=== PATIENT | male | born 1980 | race African-American/Black ===

== ENCOUNTER 2017-01-23 10:27 | Inpatient (IN) ==
[2017-01-23] MEDS ORDERED: SODIUM CHLORIDE 0.9% 250 ML IV PRN ×2 (11:43→14:08)
[2017-01-23] MEDS ORDERED: ALBUTEROL 2.5 MG/3 ML NEB RESP TX PRN ×2 (11:44→12:40)
[2017-01-23] MEDS ORDERED: SODIUM CHLORIDE 0.9% 1,000 ML IV SCH (12:00)
--- NOTE | 2017-01-23 12:26 | Hospitalist History & Physical ---
<Chaya Donahue - Last Filed: 01/23/17 12:44> Assessment and Plan (1) Decubitus ulcer of hip, left, unstageable Status: Acute Assessment and plan: Ulcerations noted bilaterally; we will culture and consult surgery to evaluate. (2) Decubitus ulcer of hip, right, unstageable Status: Acute Assessment and plan: Ulcerations noted bilaterally; we will culture and consult surgery to evaluate. (3) Leukocytosis Status: Acute Assessment and plan: WBCs were noted at 16,000. Chest x-ray at [facility] suggest right lower lobe pneumonia. We will start empiric antibiotics, inhaled bronchodilators, and intravenous corticosteroids. We will recheck chest x-ray in a.m. (4) Acidosis Status: Acute Assessment and plan: Repeat ABG reported pH at 7.181. We will continue bicarbonate drip as previously ordered. (5) GIB (gastrointestinal bleeding) Status: Acute Assessment and plan: Stool was heme positive. We have consulted gastroenterology to evaluate and treat. We will start PPIs in the meantime and hold all anticoagulation agents. (6) Anemia Status: Acute Assessment and plan: Hemoglobin and hematocrit noted at 5.6 and 17. Upon review of the patient's medical records, the patient has chronic anemia. In addition, the patient also takes Eliquis for anticoagulation purposes. We will type and screen and transfuse blood products. We will recheck hemoglobin and hematocrit in a.m. Qualifiers: Chronic kidney disease stage: unspecified stage (7) Hypomagnesemia Status: Acute Assessment and plan: Magnesium noted at 1.7; we will correct deficit and recheck in a.m. (8) INR (international normal ratio) abnormal Status: Acute History of Present Illness Chief complaint: Pneumonia/acidosis History of present illness: This is a poor and unfortunate 36-year-old male that presented to [facility] as a transfer from the [facility] in [facility] for further evaluation of pneumonia and acidosis. The patient has a very long and complex medical history significant for: Paraplegia, iron deficiency anemia, gastroesophageal reflux disease, mixed anxiety depressive disorder, chronic urinary tract infections, chronic pain syndrome, tracheostomy placement, nicotine addiction, hypocalcemia, and chronic constipation. Patient has a surgical history significant for multiple surgical debridements for various decubitus ulcerations, colectomy with colostomy placement, and spinal instrumentation with posterior rods and segmental wiring placement. The patient presented to the ED at [facility] in [facility] this morning via EMS for the evaluation of shortness of breath. Per EMS report, the patient had a productive cough with yellow sputum and shortness of breath which started on last night. The patient is homebound and is cared for by his family. They reported to the EMS staff that the patient has had multiple episodes similar in nature in the past. The patient was transported to the [facility] in [facility] for further evaluation. The patient was assessed immediately at the time of arrival. Labs were obtained ; complete blood count reported white blood cell count at 16.2, hemoglobin 5.6, hematocrit 17.7, and platelet count at 513. Comprehensive metabolic panel reported sodium at 150, potassium 5.8, chloride 122, carbon dioxide 18, calcium 6.2, BUN 34, creatinine 2.70, glucose 107, alkaline phosphatase 521, magnesium 1.4, and lactic acid at 0.5. Urinalysis was performed which was essentially negative however was a moderate amount of blood noted. Arterial blood gas was obtained which reported a pH of 7.14, PCO2 27, HC03 at 9, and PO2 of 42. Stools for occult blood were heme positive. Coagulation panel reported PTT at 79.9, PT 23.7, INR 2.8. Chest x-ray was significant for right lower lobe pneumonia. Empiric antibiotics were initiated. One amp of sodium bicarb and D5W with 3 A of bicarbonate infusion was initiated at 125 mL an hour. In addition, inhaled bronchodilators and intravenous corticosteroids were initiated. The hospitalist services was then contacted by Dr. Lillie Dent regarding transfer to [facility] for a higher level of care. After brief discussion with both Dr. Dent and Dr. Owens, the patient was subsequently transferred to [facility] for a higher level of care. The patient will be admitted to the critical care unit for continuation of care. We have requested a gastroenterology and surgical consultation to assist during the clinical encounter. Allergies Allergy/AdvReac Type Severity Reaction Status Date / Time banana Allergy Unknown/Unable Verified 01/23/17 12:44 to obtain ROS unobtainable: due to mental status Exam - Constitutional General appearance: normal weight, mild distress - Head Head exam: Present: normal inspection. Absent: normocephalic, atraumatic - Eye Eye exam: Present: EOMI, conjunctival injection Pupils: Present: DOUGLAS, normal accommodation - ENT ENT exam: Present: normal exam. Absent: normal external ear exam, normal oropharynx - Neck Neck exam: Present: normal inspection. Absent: lymphadenopathy, meningismus, tenderness, thyromegaly - Respiratory Respiratory exam: Present: accessory muscle use, rhonchi - Cardiovascular Cardiovascular exam: Present: regular rate and rhythm. Absent: carotid bruit, diastolic murmur, gallop, JVD, rubs, systolic murmur - GI/Abdominal GI/Abdominal exam: Present: normal bowel sounds, other (Colostomy noted to left upper quadrant) - Extremities Exam Extremities exam: Present: edema (+3 edema to bilateral lower extremities), other (Paraplegia) - Back Exam Back exam: Present: CVA tenderness (L) - Neurological Exam Neurological exam: Present: altered, other (Slow to respond) - Psychiatric Psychiatric exam: Present: normal affect, normal mood - Skin Skin exam: Present: normal color, other (Decubitus ulcerations noted to bilateral hips) Quality Measures - VTE Contraindication to Pharmacological VTE Prophylaxis: Active Bleeding <Britni Owens - Last Filed: 01/23/17 17:17> Assessment and Plan (1) Right lower lobe pneumonia Status: Acute Assessment and plan: The patient has been admitted to the intensive care unit. He does not require intubation at this time. He does appear to have a narrow trachea on chest x- ray and had previous tracheostomy. He is started on Levaquin, Zosyn, vancomycin. Current Visit: Yes (2) History of DVT (deep vein thrombosis) Status: Acute Assessment and plan: History of prior left lower extremity DVT on anticoagulation with Xarelto. Current Visit: Yes (3) Acidosis Status: Acute Current Visit: Yes (4) GIB (gastrointestinal bleeding) Status: Acute Current Visit: Yes Qualifiers: GI bleed type/associated pathology: unspecified peptic ulcer Qualified Code (s): K27.4 - Chronic or unspecified peptic ulcer, site unspecified, with hemorrhage (5) INR (international normal ratio) abnormal Status: Acute Assessment and plan: Fresh frozen plasma ordered Current Visit: Yes (6) History of peptic ulcer disease Status: Acute Current Visit: Yes (7) Acute posthemorrhagic anemia Status: Acute Current Visit: Yes History of Present Illness History of present illness: Mr. Zarco is a 36 year old male transferred here from an outlying hospital in [facility]. Patient is found to have acute blood loss anemia with a hemoglobin of 5.2 as well as a right lower lobe pneumonia on chest x-ray. He is not tachycardic or hypotensive. He is however tachypneic and has congested breath sounds. He is also noted to have multiple sacral wounds. Surgery and wound care consults have been placed as well as GI consult. The case was discussed with Dr. Chavez at the bedside. I have personally seen and examined this patient today. I agree with the above note as prepared by the advanced practice provider. I agree with the assessment and plan. The case was discussed with Chaya Donahue NP. Exam - Constitutional Vitals: Period Temp Pulse Resp BP Sys/Esquivel Pulse Ox Last 24 Hr 97.5 F-98.1 F 83-98 9-21 134-160/72-97 90-99
[2017-01-23 12:31] LABS: ABG Base Excess -15.2 MMOL/L (-2.5-2.5); ABG HCO3 12.4 MMOL/L (20-26); ABG Oxygen Saturation 95.4 % (95-100); ABG PO2 88.1 MM HG (80-95); ABG TCO2 11.8 MMOL/L (23-27)
[2017-01-23 12:33] LABS: ABG PH 7.181 (7.35-7.45)
[2017-01-23] MEDS ORDERED: VANCOMYCIN INJ 1,250 MG in SODIUM CHLORIDE 0.9% 250 ML IV PRN (12:54)
[2017-01-23] MEDS ORDERED: PANTOPRAZOLE 40 MG VIAL IV SCH (13:00)
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
[2017-01-23] MEDS ORDERED: VANCOMYCIN INJ 1,250 MG in SODIUM CHLORIDE 0.9% 250 ML IV ONE (14:00)
[2017-01-23] MEDS: LEVOFLOXACIN INJ 750 MG in PREMIX 1 EACH IV SCH (14:43)
[2017-01-23] MEDS: PIPERACILLIN/TAZOBACTAM 3,375 MG in SODIUM CHLORIDE 0.9% 100 ML IV SCH ×2 (14:44→23:53)
[2017-01-23] MEDS: ALBUTEROL/IPRATROPIUM 3 ML NEB RESP TX SCH ×2 (14:50→19:41)
[2017-01-23] MEDS ORDERED: SKIN HEALING OINT (AQUAPHOR) 50 GM TUBE TOP PRN (15:02)
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
--- NOTE | 2017-01-23 16:03 | Ultrasound Report ---
Left lower extremity venous Doppler. Indication: Swelling and edema. Grayscale, color flow, spectral analysis performed and interpreted. No previous for comparison. There is nonoccluding thrombus seen within the femoral vein and popliteal vein. Normal flow and compression of the common femoral vein and greater saphenous vein. Scanning technologist notified ordering RN at the time of scanning. Impression: Nonocclusive deep venous thrombosis of the left femoral and popliteal veins PROCEDURE INTERPRETED AT [facility] DEPARTMENT OF RADIOLOGY Final Report Signed by: Dr. Lucie Llanos
--- NOTE | 2017-01-23 16:42 | XRay Report ---
Portable chest. Indication: Central line placement. The heart is normal in size. The distal tip of a right IJ line is at the junction of the SVC and right atrium. The pulmonary vasculature is prominent. There is mild atelectasis at the right lung base. Katty rods are present within the back. There are findings concerning for tracheal stenosis, with apparent narrowing suggested. Impression: Satisfactory line placement, without evidence of complication. Venous congestion. Right basilar atelectasis. Suspected tracheal narrowing at the thoracic inlet. Plain films of the soft tissue of the neck recommended. PROCEDURE INTERPRETED AT [facility] DEPARTMENT OF RADIOLOGY Final Report Signed by: Dr. Lucie Llanos
[2017-01-23] MEDS: SODIUM HYPOCHLORITE 0.25% IRRIG 473 ML BOTTLE TOP SCH (17:00)
--- NOTE | 2017-01-23 17:18 | Event Note ---
Procedure note Triple-lumen catheter insertion into the right internal jugular vein. The patient was seen and examined. The site was marked. A timeout was taken. The patient's identity, procedure, consent and location were identified. Maximum barrier precautions were used. The patient was prepped and draped in sterile fashion. Local anesthesia was given with 1% lidocaine plain. The internal jugular vein was accessed and the guide wire placed without difficulty. After using the tissue dilator, the triple lumen catheter was placed over the wire and the wire removed intact. All ports were flushed with normal saline and functioned well. The central line was secured with the enclosed suture. A chest x-ray was ordered to confirm placement. The patient tolerated the procedure well. The nurse will place the appropriate dressing according to the hospital protocols.
[2017-01-23] MEDS ORDERED: SODIUM ACETATE IV SCH (17:30)
[2017-01-23] MEDS ORDERED: DEXTROSE 5% IV SCH (17:30)
[2017-01-23 18:41] LABS: Albumin 2.1 G/DL (3.4-5.0); Bilirubin,Total 0.5 MG/DL (0.2-1.0); Calcium 7.1 MG/DL (8.5-10.1); Osmolality,Calculated 300.3 MOS/KG (273-304); Potassium 5.5 MMOL/L (3.5-5.1); Total Protein 7.1 G/DL (6.4-8.3)
[2017-01-23 21:15] LABS: ABG Base Excess -12.3 MMOL/L (-2.5-2.5); ABG HCO3 14.7 MMOL/L (20-26); ABG Oxygen Saturation 94.1 % (95-100); ABG PCO2 39.6 MM HG (35-48); ABG PO2 81.1 MM HG (80-95); ABG TCO2 14.3 MMOL/L (23-27); Allen Test Positive
[2017-01-23 21:17] LABS: ABG PH 7.194 (7.35-7.45)
[2017-01-23] MEDS: PANTOPRAZOLE 40 MG VIAL IV SCH (21:36)
[2017-01-24] MEDS: ALBUTEROL/IPRATROPIUM 3 ML NEB RESP TX SCH ×4 (00:36→19:48)
[2017-01-24 02:52] LABS: ABG Base Excess -8.4 MMOL/L (-2.5-2.5); ABG HCO3 17.6 MMOL/L (20-26); ABG Oxygen Saturation 96.4 % (95-100); ABG PCO2 40.1 MM HG (35-48); ABG PH 7.263 (7.35-7.45); ABG PO2 86.1 MM HG (80-95); Allen Test Positive
[2017-01-24 04:22] LABS: Basophils % 0.1 % (0.0-0.8); Hematocrit 18.6 VOL% (42.0-52.0); Immature Granulocytes % 0.6 %; Immature Granulocytes Absolute 0.11 #; Lymphocytes # 1.4 10*3/uL (1.4-4.0); Lymphocytes % 8.4 % (21.2-54.2); Mean Corpuscular HGB Conc 33.9 GM/DL (32-36); Mean Corpuscular Hemoglobin 25 PG (27-34); Mean Corpuscular Volume 73.8 FL (87-102); Mean Platelet Volume 10.3 FL (9.6-12.0); Monocytes # 1.1 10*3/uL (0.11-0.8); Monocytes % 6.6 % (1.7-12.7); NRBC # 1.31 10*3/uL; Neutrophils # 14.4 10*3/uL (1.4-7.4); Neutrophils % 84.3 % (38.7-73.9); Platelet Count 432 T/CUMM (130-400); Red Blood Count 2.52 MC/CUMM (3.8-5.5); Red Cell Distribution Width 20.7 % (9.3-17.3); White Blood Count 17.1 T/CUMM (4-12)
[2017-01-24 04:27] LABS: Hemoglobin 6.3 GM/DL (14.0-18.0)
[2017-01-24 04:37] LABS: INR 1.2; PT Patient Result 13.2 SECS
[2017-01-24 05:04] LABS: Albumin 2.1 G/DL (3.4-5.0); Bilirubin,Total 0.8 MG/DL (0.2-1.0); Calcium 6.7 MG/DL (8.5-10.1); Magnesium 1.8 MG/DL (1.8-2.4); Potassium 4.9 MMOL/L (3.5-5.1); Total Protein 6.4 G/DL (6.4-8.3)
[2017-01-24 05:43] LABS: Band Neutrophils 1 % (0-10); Hypochromasia 2+; Lymphocytes 4 % (20-55); Myelocytes 1 %; Nucleated Red Blood Cells 6 (0-5); Segmented Neutrophils 84 % (50-85); Target Cells Few; Total Cells Counted 100
[2017-01-24 05:44] LABS: Anisocytosis 1+; Microcytosis 1+; Polychromasia Slight
[2017-01-24 05:45] LABS: Platelet Estimate Increased
[2017-01-24] MEDS: PIPERACILLIN/TAZOBACTAM 3,375 MG in SODIUM CHLORIDE 0.9% 100 ML IV SCH ×2 (06:50→16:00)
[2017-01-24] MEDS: PANTOPRAZOLE 40 MG VIAL IV SCH ×2 (08:04→20:30)
[2017-01-24] MEDS: SODIUM HYPOCHLORITE 0.25% IRRIG 473 ML BOTTLE TOP SCH (08:08)
--- NOTE | 2017-01-24 08:30 | XRay Report ---
Exam: XR chest 1V portable Indication: Shortness of breath Comparison study: 01/23/2017 Findings: Cardiac silhouette is borderline enlarged, similar to prior. Right-sided central venous catheter is in stable position. Minimal elevation right hemidiaphragm appears similar to prior. Minimal perihilar and basilar interstitial opacities are essentially unchanged. There is no focal consolidation, pneumothorax or pleural effusion identified. Impression: No focal consolidation. Minimal perihilar and basilar interstitial opacities may represent a degree of atelectasis or underlying interstitial edema. Stable position of right-sided central venous catheter. PROCEDURE INTERPRETED AT [facility] DEPARTMENT OF RADIOLOGY Final Report Signed by: Tal Glover
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
[2017-01-24] MEDS ORDERED: PROPOFOL 200 MG/20 ML VIAL IV ONE (09:14)
[2017-01-24] MEDS ORDERED: LIDOCAINE 1% 5 ML VIAL ONE (09:14)
[2017-01-24] MEDS ORDERED: ETOMIDATE 20 MG/10 ML VIAL IV ONE (09:14)
--- NOTE | 2017-01-24 09:22 | Operative Note ---
Date of procedure: 01/24/17 Pre-op diagnosis: Anemia with hematocrit of 18.6 posttransfusion 2 units Post-op diagnosis: other (No gross evidence of bleeding source or evidence of prior ulceration, mild linear gastritis noted as well as some mild duodenitis, there is no evidence of the prior ulcer in the stomach. He will likely need a lower GI evaluation next.) Procedure: PROCEDURE: Esophagogastroduodenoscopy (EGD) with cold biopsy for pathology REFERRING PHYSICIAN: Dr. Britni Owens MD INDICATIONS: Drop in hematocrit to 15% in a patient who is acidotic with a history of DVT on Xarelto. Prior history of ulcers in the past previously evaluated at [facility] approximately 6 months ago, we are starting with upper endoscopy. The prior H&P was reviewed and interrim changes are as noted: No change from GI consultation yesterday ENDOSCOPIST: Chet Chavez MD ENDOSCOPE: Olympus Video 100 System upper endoscope ASA CLASS: 4 EXAM: CV: regular rate and rhythm respiratory: Clear without wheezes abdominal: active bowel sounds MEDICATION: Per nursing anesthesia protocol, see their notes PROCEDURE: After discussion of the potential risks and benefits of upper endoscopy, the informed consent was obtained. The patient was then placed in the left lateral decubitus position where sedation was achieved as noted above. Esophageal intubation was performed without difficulty, and the endoscope was advanced through the esophagus, stomach and duodenum. A slow withdrawal was then performed with retroflexion in the stomach for careful inspection of the incisura angularis, fundus and cardia. The scope was then returned to a neutral position and withdrawn through the esophagus. The patient tolerated the procedure well and without complication. BIOPSIES: Gastric antrum/body PHOTOGRAPHS: Obtained FINDINGS: Hypopharynx and Larynx: Normal Esohagoscopy Upper and middle thirds: Normal Lower third normal Esophogastric junctions: Normal Gastroscopy: Cardia/Fundus: No evidence of hiatal hernia, no retained fluid Body: Mild linear gastritis, no evidence of bleeding, biopsied 1 here to rule out Helicobacter pylori Antrum and pylorus mild to moderate linear gastritis, no evidence of bleeding, biopsies 1 here to rule out Helicobacter pylori Duodenoscopy: Bulb mild duodenitis but no erosions or ulcerations Second and third portions: Normal IMPRESSION: No gross evidence of bleeding source or evidence of prior ulceration, mild linear gastritis noted as well as some mild duodenitis, there is no evidence of the prior ulcer in the stomach. He will likely need a lower GI evaluation next. RECOMMENDATIONS: Follow up for biopsy results in 1-2 weeks by phone [phone] Continue anti-gastroesophageal reflux measures (avoid carbonated and acidic beverages, avoid eating within 2 hours of bedtime, avoid tight fitting clothing , and elevate the front bed posts 6 inches prior to sleeping. We will need to perform colonoscopy in order to look for bleeding source in the lower GI tract given the maroon stool seen yesterday in the drop in the patient' s hematocrit. Continue off Xarelto for the time being. This patient may need a Luis Carlos filter considering his history of DVTs, possibly. Chet Chavez MD COPY TO: Dr. Britni Owens MD Anesthesia: MAC Surgeon / Physician: Chet Chavez Estimated blood loss: minimal Specimens: other (Gastric antrum/body 2 bites) Condition: stable Disposition: post procedure unit (G.I. Suite) Results - Labs CBC & BMP: 01/24/17 03:29 01/24/17 03:29
--- NOTE | 2017-01-24 09:29 | Gastrointestinal Progress Note ---
Assessment and Plan (1) History of peptic ulcer disease Status: Acute Assessment and plan: We will attempt to get old records from [facility] concerning this upper endoscopy with the nature of the bleeding was. This may or may not have anything to do with the patient's current bleeding episode--given this patient was recently on Xarelto and does have his history of peptic ulcer disease we will perform another upper endoscopy to look and see if this is healed. It is not clear if the patient was taking proton pump inhibitors at home prior to his admission to the [facility], but he has been on Xarelto for recent DVT in the certainly could increase his risk for bleeding down to his hematocrit of 17%. We will continue to watch as he is transfused. We will perform upper endoscopy tomorrow with possible colonoscopy to follow if this does not demonstrate a adequate cause for the patient's blood loss. Risks of the above procedure include but are not limited to bleeding, infection, perforation, cardiac and pulmonary compromise. 01/24/17--the patient does not have any evidence of prior peptic ulcer disease, patient does have some mild linear gastritis but this does not appear to be the source of the patient's bleeding--we will need to check the colon after a GoLYTELY prep given this patient's elevated creatinine and other non-GI issues. Hopefully he will be able to tolerate this. We can consider use of an NG tube if not. Current Visit: Yes (2) Acute posthemorrhagic anemia Status: Acute Assessment and plan: Again await transfusion, and agree with holding anticoagulation follow the patient's hematocrit over time. He may need some fresh frozen plasma given his INR of of 2.8--I am not sure we have an adequate reason for the elevation in the INR if the patient has not been on Coumadin but rather Xarelto. We need to give some fresh frozen plasma in the short-term to correct this. Follow this on a daily basis--hopefully the next INR was down closer to 1.5. Upper endoscopy to follow tomorrow morning. 01/24/17--A slight improvement with the patient's transfusion, I believe he is getting another 2 units of packed red blood cells in the near future. Current Visit: Yes (3) Status post colostomy Status: Acute Assessment and plan: This was done due to the patient's swelling of his decubiti ulcers. Also if to help with self cleaning. There may be bleeding at the ostomy site, we will need to look at the entire colon see if there is any evidence of ongoing bleeding. Osvaldo prep written. Risks and benefits of the colonoscopy include the following:, Bleeding, infection, perforation, cardiac and pulmonary compromise. Current Visit: Yes Gastroenterology - PN: Subj Interval history: Patient feels all right, no new complaints, tolerated the blood well but has not had a significant improvement in his hematocrit yet. Exam (Progress Note) - Constitutional Vitals: Period Temp Pulse Resp BP Sys/Esquivel Pulse Ox Last 24 Hr 97 F-98.9 F 77-103 9-30 96-160/55-98 90-100 General appearance: no acute distress - Head Head exam: Present: normocephalic - Eye Eye exam: Present: EOMI - Respiratory Respiratory exam: Present: clear to auscultation bilaterally. Absent: rhonchi, stridor, wheezes - Cardiovascular Cardiovascular exam: Present: regular rate and rhythm - GI/Abdominal GI/Abdominal exam: Present: normal bowel sounds, soft. Absent: guarding, tenderness, rebound - Extremities Exam Extremities exam: Present: edema (On the extremity with DVT) - Neurological Exam Neurological exam: Present: alert, oriented X3, motor sensory deficit ( Paralyzed below the waist) - Psychiatric Psychiatric exam: Present: normal affect, normal mood - Skin Skin exam: Present: warm Results - Labs CBC & BMP: 01/24/17 03:29 01/24/17 03:29
[2017-01-24] MEDS: DEXTROSE 5% NACL 0.45% 1,000 ML IV SCH ×3 (09:30→17:32)
--- NOTE | 2017-01-24 10:04 | Anesthesia Post-Op ---
Anesthesia Post OP - Post Ansesthetic Evaluation Patient seen in post op: Yes Resp: within normal limits CV: within normal limits Mental: within normal limits Temp: within normal limits Eyqb-Hf-Obwdcdbek: within normal limits Nausea and Vomiting: within normal limits Pain: within normal limits
[2017-01-24] MEDS: BISACODYL 5 MG TABLET PO SCH ×2 (13:27→16:46)
--- NOTE | 2017-01-24 15:45 | Physician Query Form ---
CLICK EDIT DOCUMENT TO SELECT QUERY ANSWER --> OK --> SIGN Stefanie Tang RN Clinical Utility Agent W) [phone] (f) [phone] [email or web address]: Make your selection(s) from the choices in EACH section by typing an "x" and enter comments in the comment section. Please use your independent medical judgment in providing your response. This request does not imply that any particular answer is desired or expected. CLINICAL INDICATORS: (Providers should not edit this section) Based on documentation of " History of prior left lower extremity DVT on anticoagulation with Xarelto. Xarelto is being held due to gastrointestinal bleeding and acute blood loss anemia". Based on the above, could you clarify the appropriate diagnosis, if significant , that supports the above abnormalities and additional evaluation, monitoring, and/or treatment rendered: ( ) GI bleeding due to anticoagulant (Xarelto) ( ) GI bleeding not due to anticoagulant (Xarelto) ( ) GI bleeding due to ( ) Other, please specify: ( X ) Clinically unable to determine because the patient is still undergoing a workup for bleeding. His EGD was negative but he has not had a colonoscopy. I cannot say that the bleeding is due to the anticoagulation however the anticoagulation does contribute and make the bleeding worse. COMMENTS: PLEASE ALSO DOCUMENT RESPONSE IN PROGRESS NOTES AND/OR DISCHARGE SUMMARY Use of terms such as suspected, likely, or probable (associated with a specific diagnosis that is being evaluated, monitored, or treated as if it exists) are acceptable and can be restated in the discharge summary if not ruled out. MTDD
--- NOTE | 2017-01-24 15:49 | Physician Query Form ---
CLICK EDIT DOCUMENT TO SELECT QUERY ANSWER --> OK --> SIGN Stefanie Tang RN Clinical Test Preparation Tutor W) [phone] (f) [phone] [email or web address] PROVIDERS: Make your selection(s) from the choices in EACH section by typing an "x" and enter comments in the comment section. Please use your independent medical judgment in providing your response. This request does not imply that any particular answer is desired or expected. CLINICAL INDICATORS: (Providers should not edit this section) Based on documentation of "History of prior left lower extremity DVT on anticoagulation with Xarelto". Ultrasound Doppler report states "Nonocclusive deep venous thrombosis of the left femoral and popliteal veins". Based on the above, could you clarify the appropriate diagnosis, if significant , that supports the above abnormalities and additional evaluation, monitoring, and/or treatment rendered: (X ) Pt. has chronic dvt ( ) Pt. has acute and chronic dvt ( ) Pt. has history of dvt only ( ) Other, please specify: ( ) Clinically unable to determine COMMENTS: PLEASE ALSO DOCUMENT RESPONSE IN PROGRESS NOTES AND/OR DISCHARGE SUMMARY Use of terms such as suspected, likely, or probable (associated with a specific diagnosis that is being evaluated, monitored, or treated as if it exists) are acceptable and can be restated in the discharge summary if not ruled out. MTDD
[2017-01-24] MEDS: COLLAGENASE OINT 30 GM TUBE TOP SCH (16:45)
[2017-01-24] MEDS: HYDROmorphone 2 MG/1 ML VIAL IV PRN ×2 (16:46→20:30)
[2017-01-24 17:10] LABS: Hemoglobin 7.7 GM/DL (14.0-18.0)
[2017-01-24] MEDS ORDERED: POLYETHYLENE GLYCOL 3350/ELECTROLYTES 4,000 ML BOTTLE PO ONE (18:00)
[2017-01-24] MEDS: MORPHINE 2 MG/1 ML SYRINGE IV PRN (18:42)
[2017-01-24] MEDS: VANCOMYCIN INJ 1,250 MG in SODIUM CHLORIDE 0.9% 250 ML IV SCH (20:30)
[2017-01-24] MEDS ORDERED: MAGNESIUM CITRATE 300 ML BOTTLE PO ONE (21:00)
[2017-01-24] MEDS ORDERED: ONDANSETRON 4 MG/2 ML VIAL IV PRN (21:36)
[2017-01-25] MEDS: ALBUTEROL/IPRATROPIUM 3 ML NEB RESP TX SCH ×4 (00:20→20:41)
[2017-01-25] MEDS: DEXTROSE 5% NACL 0.45% 1,000 ML IV SCH ×4 (00:36→19:35)
[2017-01-25] MEDS: PIPERACILLIN/TAZOBACTAM 3,375 MG in SODIUM CHLORIDE 0.9% 100 ML IV SCH ×3 (00:36→16:07)
[2017-01-25] MEDS: BISACODYL 5 MG TABLET PO SCH (00:38)
[2017-01-25] MEDS: MORPHINE 2 MG/1 ML SYRINGE IV PRN ×4 (00:56→19:38)
[2017-01-25] MEDS: SODIUM HYPOCHLORITE 0.25% IRRIG 473 ML BOTTLE TOP SCH ×2 (03:00→14:46)
[2017-01-25] MEDS: HYDROmorphone 2 MG/1 ML VIAL IV PRN ×5 (03:20→22:54)
[2017-01-25 06:39] LABS: Basophils % 0.2 % (0.0-0.8); Eosinophils % 0.2 % (0.00-10.9); Hematocrit 25.9 VOL% (42.0-52.0); Hemoglobin 8.5 GM/DL (14.0-18.0); Immature Granulocytes % 0.9 %; Immature Granulocytes Absolute 0.14 #; Lymphocytes # 3.2 10*3/uL (1.4-4.0); Lymphocytes % 19.4 % (21.2-54.2); Mean Corpuscular HGB Conc 32.8 GM/DL (32-36); Mean Corpuscular Hemoglobin 26 PG (27-34); Mean Corpuscular Volume 78.7 FL (87-102); Mean Platelet Volume 9.9 FL (9.6-12.0); Monocytes % 5.9 % (1.7-12.7); NRBC # 2.62 10*3/uL; Neutrophils % 73.4 % (38.7-73.9); Platelet Count 403 T/CUMM (130-400); Red Blood Count 3.29 MC/CUMM (3.8-5.5); Red Cell Distribution Width 20.5 % (9.3-17.3); White Blood Count 16.3 T/CUMM (4-12)
[2017-01-25 07:14] LABS: Band Neutrophils 1 % (0-10); Hypochromasia 1+; Lymphocytes 15 % (20-55); Microcytosis 1+; Nucleated Red Blood Cells 30 (0-5); Polychromasia Slight; Segmented Neutrophils 79 % (50-85); Total Cells Counted 100
[2017-01-25 07:15] LABS: Platelet Estimate Increased; Target Cells Few
[2017-01-25 07:17] LABS: Magnesium 1.8 MG/DL (1.8-2.4); Osmolality,Calculated 296.1 MOS/KG (273-304); Potassium 3.8 MMOL/L (3.5-5.1)
[2017-01-25] MEDS ORDERED: CALCIUM GLUCONATE 1,000 MG in SODIUM CHLORIDE 0.9% 100 ML IV ONE (08:12)
--- NOTE | 2017-01-25 09:18 | General Surgery Progress Note ---
Assessment and Plan (1) Sacral decubitus ulcer Status: Acute Assessment and plan: Impression multiple scattered ulcerations mixed with scar tissue across the bilateral buttocks hips and sacral areas Plan: We will continue with local wound care. He can follow-up in the wound care center for continued management as an outpatient. He has other more pressing issues currently than his chronic ulcers. Current Visit: Yes Subjective Patient reports: Present: no new complaints Exam - Constitutional Vitals: Period Temp Pulse Resp BP Sys/Esquivel Pulse Ox Last 24 Hr 98 F-99.9 F 75-107 11-24 94-160/61-104 92-100 General appearance: no acute distress - Head Head exam: Present: normocephalic - Neck Neck exam: Present: normal inspection - Respiratory Respiratory exam: Present: clear to auscultation bilaterally - Cardiovascular Cardiovascular exam: Present: RRR - GI/Abdominal GI/Abdominal exam: Present: soft - Back Exam Back exam: Present: other (No change in the chronic appearing ulcerations and scar tissue of the buttock and sacral areas. The small amount of eschar and nonviable tissue present at a couple of areas.) Results - Labs CBC & BMP: 01/25/17 06:17 01/25/17 06:17 Lab Results: I have reviewed the past 24 hour labs Quality Measures - VTE Contraindication to Pharmacological VTE Prophylaxis: Active Bleeding
[2017-01-25] MEDS ORDERED: LIDOCAINE 100 MG/5 ML SYRINGE ONE (10:30)
[2017-01-25] MEDS ORDERED: PROPOFOL 200 MG/20 ML VIAL IV ONE (10:30)
--- NOTE | 2017-01-25 11:16 | Operative Note ---
Date of procedure: 01/25/17 Pre-op diagnosis: Hematocrit dropped to 18% and 6 g/dL, maroon stools Post-op diagnosis: other (No gross evidence of bleeding in the colon. This patient has a colostomy in the descending colon. The colon is otherwise unremarkable in appearance. If the patient has recurrence of maroon stools with obtain a tagged red blood cell scan and consider getting capsule endoscopy to look at the small bowel for potential bleeding lesions.) Procedure: PROCEDURE: Colonoscopy [] REFERRING PHYSICIAN: [Britni Owens MD] INDICATIONS: [Hematocrit 18.6/6.3 g/dL, maroon blood per colostomy with negative EGD for prior history of ulcers noted at [place] 6 months ago. ] [The prior H&P was reviewed and interrim changes are as noted: ][No change from GI consultation 2 days ago] ENDOSCOPIST: Chet Chavez MD ENDOSCOPE: Rocketrip Video 100 System colonoscope COLON PREPARATION: [Golytely 4 liters and dulcolax 15 mg po [id number] x 3] ASA CLASS: [4] EXAM: CV: regular rate and rhythm Respiratory: Clear without wheezes Abdominal: active bowel sounds Rectal: Good tone, no fissures or fistulas MEDICATION: Per nursing anesthesia protocol, see their notes PROCEDURE: After discussion of the potential risks and benefits of colonoscopy, the informed consent was obtained, from patient or health care surrogate. The patient was then placed in the left lateral decubitus position where sedation was achieved as noted above. Rectal examination was followed by insertion of the colonoscope. The colonoscope was passed under direct visualization to the cecum. Advancement was facilitated by insertion/withdrawl techniques, abdominal pressure and patient positioning. Once the cecal pole was reached, slow withdrawal was performed with the findings as noted below. The patient tolerated the procedure well and without complication. QUALITY OF PREP: [Adequate] WITHDRAWL TIME: [ 6 minutes 13 seconds] BIOPSIES: [None obtained] PHOTOGRAPHS: [Obtained] FINDINGS: [The musoca appeared normal but somewhat redundant in the following regions: descending colon, splenic flexure, transverse colon, hepatic flexure, ascending colon and cecum. Position within the cecum was confirmed by ileocecal valve, appendiceal oriface, and the convergence of folds (crows foot) . The rectum and sigmoid were surgically absent-- there was no colitis, polyp, mass or AVM was noted throughout the colon. No diverticulosis noted. Intubation of the TI was achieved x 5 cm with normal appearence,] IMPRESSION: [No gross evidence of bleeding in the colon. This patient has a colostomy in the descending colon. The colon is otherwise unremarkable in appearance. If the patient has recurrence of maroon stools with obtain a tagged red blood cell scan and consider getting capsule endoscopy to look at the small bowel for potential bleeding lesions.] RECOMMENDATIONS: [High fiber diet] [Repeat colonosocopy at age 48 and another 12 years] [MiraLAX once daily] [] Chet Chavez MD COPY TO: [Britni Owens MD] Anesthesia: MAC Surgeon / Physician: Chet Chavez Estimated blood loss: minimal Specimens: none sent Condition: stable Disposition: post procedure unit (G.I. Suite) Results - Labs CBC & BMP: 01/25/17 06:17 01/25/17 06:17
--- NOTE | 2017-01-25 11:20 | Gastrointestinal Progress Note ---
Assessment and Plan (1) History of peptic ulcer disease Status: Acute Assessment and plan: We will attempt to get old records from [facility] concerning this upper endoscopy with the nature of the bleeding was. This may or may not have anything to do with the patient's current bleeding episode--given this patient was recently on Xarelto and does have his history of peptic ulcer disease we will perform another upper endoscopy to look and see if this is healed. It is not clear if the patient was taking proton pump inhibitors at home prior to his admission to the [facility], but he has been on Xarelto for recent DVT in the certainly could increase his risk for bleeding down to his hematocrit of 17%. We will continue to watch as he is transfused. We will perform upper endoscopy tomorrow with possible colonoscopy to follow if this does not demonstrate a adequate cause for the patient's blood loss. Risks of the above procedure include but are not limited to bleeding, infection, perforation, cardiac and pulmonary compromise. 01/24/17--the patient does not have any evidence of prior peptic ulcer disease, patient does have some mild linear gastritis but this does not appear to be the source of the patient's bleeding--we will need to check the colon after a GoLYTELY prep given this patient's elevated creatinine and other non-GI issues. Hopefully he will be able to tolerate this. We can consider use of an NG tube if not. 01/25/17--colonoscopy demonstrated the following: No gross evidence of bleeding in the colon. This patient has a colostomy in the descending colon. The colon is otherwise unremarkable in appearance. If the patient has recurrence of maroon stools with obtain a tagged red blood cell scan and consider getting capsule endoscopy to look at the small bowel for potential bleeding lesions. Current Visit: Yes (2) Acute posthemorrhagic anemia Status: Acute Assessment and plan: Again await transfusion, and agree with holding anticoagulation follow the patient's hematocrit over time. He may need some fresh frozen plasma given his INR of of 2.8--I am not sure we have an adequate reason for the elevation in the INR if the patient has not been on Coumadin but rather Xarelto. We need to give some fresh frozen plasma in the short-term to correct this. Follow this on a daily basis--hopefully the next INR was down closer to 1.5. Upper endoscopy to follow tomorrow morning. 01/24/17--A slight improvement with the patient's transfusion, I believe he is getting another 2 units of packed red blood cells in the near future. 01/25/17--patient to be taken out of the ICU at this point from a GI standpoint. There is no bleeding source. Suggest he be watched for stability and sent home tomorrow if stable, if no other issues keeping him in the hospital. Current Visit: Yes (3) Status post colostomy Status: Acute Assessment and plan: This was done due to the patient's swelling of his decubiti ulcers. Also if to help with self cleaning. There may be bleeding at the ostomy site, we will need to look at the entire colon see if there is any evidence of ongoing bleeding. GoLYTELY prep written. Risks and benefits of the colonoscopy include the following:, Bleeding, infection, perforation, cardiac and pulmonary compromise. 01/25/17--this was essentially a normal post colostomy colon. Current Visit: Yes Gastroenterology - PN: Subj Interval history: Patient had difficulty swallowing the rest of his prep as a result the colonoscopy was more prolonged than normal. We did not find bleeding source unfortunately. The patient can resume eating a renal diet. Exam (Progress Note) - Constitutional Vitals: Period Temp Pulse Resp BP Sys/Esquivel Pulse Ox Last 24 Hr 98 F-99.9 F 75-107 11-24 101-160/61-104 92-100 General appearance: no acute distress - Eye Eye exam: Present: EOMI Pupils: Present: DOUGLAS - Respiratory Respiratory exam: Present: clear to auscultation bilaterally - GI/Abdominal GI/Abdominal exam: Present: soft. Absent: distended, tenderness, rebound - Neurological Exam Neurological exam: Present: alert, oriented X3, altered - Psychiatric Psychiatric exam: Present: normal affect, normal mood - Skin Skin exam: Present: warm Results - Labs CBC & BMP: 01/25/17 06:17 01/25/17 06:17
--- NOTE | 2017-01-25 11:21 | Anesthesia Post-Op ---
Anesthesia Post OP - Post Ansesthetic Evaluation Patient seen in post op: Yes Resp: within normal limits CV: within normal limits Mental: within normal limits Temp: within normal limits Owog-Rw-Ctprizxte: within normal limits Nausea and Vomiting: within normal limits Pain: within normal limits
[2017-01-25] MEDS: LEVOFLOXACIN INJ 750 MG in PREMIX 1 EACH IV SCH (12:44)
[2017-01-25] MEDS: COLLAGENASE OINT 30 GM TUBE TOP SCH (14:46)
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
--- NOTE | 2017-01-25 19:27 | Pathology Report from [facility] ---
[facility] ACCESSION # : [id number] PATIENT NAME : Jr. Vegas Davis ORDERING DR : Chet Chavez MD CLINICAL HX: GI Bleed POST-OP DX: Gastritis SPECIMEN INFO: EMELYN GROSS DESCRIPTION: The specimen is received in formalin labeled with the patients name and consists of three man mucosal tissue fragments together measuring 0.5 x 0.2 cm. Submitted in one cassette. DIAGNOSIS FOR NIRANJAN VEGAS JR.: GASTRIC, BIOPSY: Focal active and mild chronic gastritis. H. pylori not seen on H&E or special stain with appropriate control. COLLECTED DATE: 01/24/2017 [facility] REPORT DATE: 01/25/2017 ELECTRONICALLY SIGNED BY: Heaven Fernandez M.D. 01/25/2017 - 11:32:05 GRIFFIN
[2017-01-25] MEDS: PANTOPRAZOLE 40 MG TABLET PO SCH (19:39)
[2017-01-25] MEDS: VANCOMYCIN INJ 1,250 MG in SODIUM CHLORIDE 0.9% 250 ML IV SCH (22:53)
[2017-01-26] MEDS: ALBUTEROL/IPRATROPIUM 3 ML NEB RESP TX SCH ×4 (00:21→19:49)
[2017-01-26] MEDS: PIPERACILLIN/TAZOBACTAM 3,375 MG in SODIUM CHLORIDE 0.9% 100 ML IV SCH ×3 (01:27→16:59)
[2017-01-26] MEDS: MORPHINE 2 MG/1 ML SYRINGE IV PRN ×6 (01:28→22:17)
[2017-01-26 05:02] LABS: Basophils % 0.2 % (0.0-0.8); Eosinophils # 0.2 10*3/uL (0.0-0.87); Eosinophils % 1.3 % (0.00-10.9); Hematocrit 26.6 VOL% (42.0-52.0); Hemoglobin 8.7 GM/DL (14.0-18.0); Immature Granulocytes Absolute 0.13 #; Lymphocytes # 3.2 10*3/uL (1.4-4.0); Lymphocytes % 23.5 % (21.2-54.2); Mean Corpuscular HGB Conc 32.7 GM/DL (32-36); Mean Corpuscular Hemoglobin 26 PG (27-34); Mean Platelet Volume 9.9 FL (9.6-12.0); Monocytes # 1.3 10*3/uL (0.11-0.8); Monocytes % 9.7 % (1.7-12.7); NRBC # 2.09 10*3/uL; Neutrophils # 8.7 10*3/uL (1.4-7.4); Neutrophils % 64.3 % (38.7-73.9); Platelet Count 379 T/CUMM (130-400); Red Blood Count 3.41 MC/CUMM (3.8-5.5); White Blood Count 13.5 T/CUMM (4-12)
[2017-01-26] MEDS: DEXTROSE 5% NACL 0.45% 1,000 ML IV SCH ×3 (05:23→17:41)
[2017-01-26 05:39] LABS: Magnesium 1.5 MG/DL (1.8-2.4); Osmolality,Calculated 294.3 MOS/KG (273-304); Potassium 3.3 MMOL/L (3.5-5.1)
[2017-01-26 05:55] LABS: Calcium 5.8 MG/DL (8.5-10.1)
[2017-01-26] MEDS: PANTOPRAZOLE 40 MG TABLET PO SCH ×2 (06:01→18:08)
[2017-01-26 06:05] LABS: Anisocytosis 1+; Hypochromasia 1+; Microcytosis 1+; Target Cells Few
[2017-01-26 06:06] LABS: Platelet Estimate Normal; Spherocytes Slight
--- NOTE | 2017-01-26 06:39 | Event Note ---
Reported calcium is low at 5.8. No symptoms patient had a albumin of 2.1 earlier when had a calcium 6.7. Corrected calcium may be not that critical due to hypoalbuminemia. I will recheck albumin level and to be followed by the hospitalist in the morning
[2017-01-26] MEDS: HYDROmorphone 2 MG/1 ML VIAL IV PRN ×4 (06:42→20:28)
[2017-01-26] MEDS: PANTOPRAZOLE 40 MG VIAL IV SCH (07:57)
--- NOTE | 2017-01-26 09:45 | Gastrointestinal Progress Note ---
Assessment and Plan (1) Acute posthemorrhagic anemia Status: Acute Assessment and plan: Again await transfusion, and agree with holding anticoagulation follow the patient's hematocrit over time. He may need some fresh frozen plasma given his INR of of 2.8--I am not sure we have an adequate reason for the elevation in the INR if the patient has not been on Coumadin but rather Xarelto. We need to give some fresh frozen plasma in the short-term to correct this. Follow this on a daily basis--hopefully the next INR was down closer to 1.5. Upper endoscopy to follow tomorrow morning. 01/24/17--A slight improvement with the patient's transfusion, I believe he is getting another 2 units of packed red blood cells in the near future. 01/25/17--patient to be taken out of the ICU at this point from a GI standpoint. There is no bleeding source. Suggest he be watched for stability and sent home tomorrow if stable, if no other issues keeping him in the hospital. 01/26/17--patient's hematocrit is certainly stable and improving. He does have some linear gastritis in combination with his Xarelto this is thought to be a source of most of his microcytic anemia. The colon demonstrated no bleeding source whatsoever. Patient is off his Xarelto and is medical rate is certainly improved from 17% up to its current level 26.6%. He is eating well. We really do not have a great bleeding source for him and he does have a DVT that will likely require some treatment. He had previously been on Xarelto and while he is on Protonix he may be protected to some degree, it also might be reasonable to base a [place] filter and leave him off of Xarelto until his stomach heal somewhat. The other option is to put him back on Xarelto and have him recheck in the office in about a month concerning his blood counts and consider capsule endoscopy if he is having low-grade bleeding versus tagged red blood cell scan if he is actively bleeding. In the short-term I am going to go ahead and put him on some ferrous gluconate 3 times daily to rebuild his iron stores. Patient will remain on pantoprazole 40 mg prior to supper for acid control. His prescriptions were written. I will be signing off at this time. Current Visit: Yes (2) Gastritis and duodenitis Status: Acute Assessment and plan: This was thought to be the source the patient's bleeding and as mentioned above pantoprazole has been written as well as ferrous gluconate 325 mg 3 times daily for 2 months to replete his blood stores. Current Visit: Yes (3) Status post colostomy Status: Acute Assessment and plan: This was done due to the patient's swelling of his decubiti ulcers. Also if to help with self cleaning. There may be bleeding at the ostomy site, we will need to look at the entire colon see if there is any evidence of ongoing bleeding. GoLYTELY prep written. Risks and benefits of the colonoscopy include the following:, Bleeding, infection, perforation, cardiac and pulmonary compromise. 01/25/17--This was essentially a normal post colostomy colon. 01/26/17--As noted above. Current Visit: Yes Gastroenterology - PN: Subj Interval history: Patient was offered a potential discharge today but states that he feels "cold and weak" and that his pharmacy does not stay open past 12 and he is concerned about having to come right back to the hospital if he were to be discharged today. I am going to have him discuss this further with the ship pilot but emphasized to him that from a GI standpoint he is probably reached the maximal benefits of hospitalization. The patient is eating well. Exam (Progress Note) - Constitutional Vitals: Period Temp Pulse Resp BP Sys/Esquivel Pulse Ox Last 24 Hr 98.6 F-99.0 F 74-91 14-24 137-161/74-95 98-100 General appearance: no acute distress - Head Head exam: Present: normocephalic - Eye Eye exam: Present: EOMI - Respiratory Respiratory exam: Present: clear to auscultation bilaterally. Absent: rhonchi, stridor, wheezes - Cardiovascular Cardiovascular exam: Present: regular rate and rhythm - GI/Abdominal GI/Abdominal exam: Present: normal bowel sounds, soft, other (Colostomy basically empty of anything but air, multiple scars noted on abdomen.). Absent : distended, tenderness, rebound - Extremities Exam Extremities exam: Present: edema (In association with prior DVT noted) - Neurological Exam Neurological exam: Present: alert, oriented X3, motor sensory deficit ( Hemiplegia noted below the waist). Absent: altered - Skin Skin exam: Present: warm Results - Labs CBC & BMP: 07/15/17 04:42 01/26/17 04:42
--- NOTE | 2017-01-26 11:02 | Hospitalist Progress Note ---
Assessment and Plan (1) Decubitus ulcer of hip, left, unstageable Status: Acute Assessment and plan: Ulcerations noted bilaterally; we will culture and consult surgery to evaluate. 01/26-Surgery to follow and manage. Current Visit: Yes (2) Decubitus ulcer of hip, right, unstageable Status: Acute Assessment and plan: Ulcerations noted bilaterally; we will culture and consult surgery to evaluate. 01/26-surgery is following and managing. Current Visit: Yes (3) Leukocytosis Status: Acute Assessment and plan: WBCs were noted at 16,000. Chest x-ray at [facility] suggest right lower lobe pneumonia. We will start empiric antibiotics, inhaled bronchodilators, and intravenous corticosteroids. We will recheck chest x-ray in a.m. 01/26-Improvement in white blood cell count noted. White blood cell count noted at 13.5. We will continue empiric antibiotics as previously ordered. Current Visit: Yes (4) Acidosis Status: Resolved Assessment and plan: Repeat ABG reported pH at 7.181. We will continue bicarbonate drip as previously ordered. Current Visit: Yes (5) GIB (gastrointestinal bleeding) Status: Acute Assessment and plan: Stool was heme positive. We have consulted gastroenterology to evaluate and treat. We will start PPIs in the meantime and hold all anticoagulation agents. 01/26-Hemoglobin and hematocrit noted at 8.7 and 26.6. No further episodes of bleeding noted anticoagulation agents remain on hold. Agree with GI recommendation to start ferrous sulfate and Protonix. Current Visit: Yes Qualifiers: GI bleed type/associated pathology: unspecified peptic ulcer Qualified Code (s): K27.4 - Chronic or unspecified peptic ulcer, site unspecified, with hemorrhage (6) Anemia Status: Acute Assessment and plan: Hemoglobin and hematocrit noted at 5.6 and 17. Upon review of the patient's medical records, the patient has chronic anemia. In addition, the patient also takes Eliquis for anticoagulation purposes. We will type and screen and transfuse blood products. We will recheck hemoglobin and hematocrit in a.m. 01/26-hemoglobin and hematocrit stable at 8.7 at 26.6. No reports of any bleeding noted. We agree with GIs recommendation to start ferrous sulfate and Protonix. We appreciate the input and management of Dr. Chavez during the clinical encounter. Current Visit: Yes Qualifiers: Chronic kidney disease stage: unspecified stage (7) Hypomagnesemia Status: Acute Assessment and plan: Magnesium noted at 1.7; we will correct deficit and recheck in a.m. Current Visit: Yes (8) INR (international normal ratio) abnormal Status: Acute Current Visit: Yes Hospitalist: Subjective Interval history: Patient seen and examined; chart reviewed. Transferred from critical care on yesterday. No significant overnight events reported per staff. Exam - Constitutional Vitals: Period Temp Pulse Resp BP Sys/Esquivel Pulse Ox Last 24 Hr 98.6 F-99.0 F 74-91 14-24 137-161/74-95 98-100 General appearance: normal weight, no acute distress - Head Head exam: Present: normal inspection, normocephalic, atraumatic - Eye Eye exam: Present: EOMI, conjunctival injection Pupils: Present: DOUGLAS, normal accommodation - ENT ENT exam: Present: normal exam, normal external ear exam, normal oropharynx - Neck Neck exam: Present: normal inspection. Absent: lymphadenopathy, meningismus, thyromegaly - Respiratory Respiratory exam: Present: rhonchi - Cardiovascular Cardiovascular exam: Present: regular rate and rhythm. Absent: diastolic murmur , systolic murmur - GI/Abdominal GI/Abdominal exam: Present: normal bowel sounds, soft, other (Colostomy noted) - Extremities Exam Extremities exam: Present: normal inspection, normal capillary refill, edema (+ 2 edema noted bilateral lower extremities), other (Paraplegia) - Back Exam Back exam: Present: normal inspection - Neurological Exam Neurological exam: Present: alert, oriented X3 - Psychiatric Psychiatric exam: Present: normal affect, normal mood - Skin Skin exam: Present: normal color, other (Multiple decubitus ulcerations noted to bilateral hips and coccyx.) Results - Labs CBC & BMP: 01/26/17 04:42 01/26/17 04:42 Lab Results: I have reviewed the past 24 hour labs Quality Measures - VTE Contraindication to Pharmacological VTE Prophylaxis: Active Bleeding
[2017-01-26] MEDS ORDERED: MAGNESIUM SULF RIDER 2 GM in PREMIX 1 EACH IV ONE (11:38)
[2017-01-26] MEDS ORDERED: CALCIUM GLUCONATE 1,000 MG in SODIUM CHLORIDE 0.9% 100 ML IV ONE (12:30)
[2017-01-26 14:41] LABS: Apearance,Urine CLEAR (Clear); Bilirubin,Urine Negative (Negative); Blood, Urine Small mg/dL (Negative); Glucose,Urine (UA) Negative (Negative); Ketones,Urine Negative (Negative); Nitrite,Urine Negative (Negative); Protein,Urine 100 MG/DL; RBC,Urine 3 /HPF (0-4); Urine Color Colorless (Yellow); Urine Specific Gravity 1.003 (1.001-1.035); Urine Urobilinogen < 2.0 EU/DL (0.2-1.0); WBC,Urine 6 /HPF (0-6)
[2017-01-26] MEDS: COLLAGENASE OINT 30 GM TUBE TOP SCH (15:12)
[2017-01-26] MEDS: SODIUM HYPOCHLORITE 0.25% IRRIG 473 ML BOTTLE TOP SCH (15:12)
[2017-01-26] MEDS: VANCOMYCIN INJ 1,250 MG in SODIUM CHLORIDE 0.9% 250 ML IV SCH (21:54)
[2017-01-27] MEDS: PIPERACILLIN/TAZOBACTAM 3,375 MG in SODIUM CHLORIDE 0.9% 100 ML IV SCH ×3 (00:14→19:10)
[2017-01-27] MEDS: HYDROmorphone 2 MG/1 ML VIAL IV PRN ×2 (01:19→07:09)
[2017-01-27] MEDS: ALBUTEROL/IPRATROPIUM 3 ML NEB RESP TX SCH ×4 (01:20→19:59)
[2017-01-27] MEDS: MORPHINE 2 MG/1 ML SYRINGE IV PRN ×4 (03:54→23:33)
[2017-01-27] MEDS: DEXTROSE 5% NACL 0.45% 1,000 ML IV SCH ×3 (03:54→17:56)
[2017-01-27 05:01] LABS: Basophils % 0.2 % (0.0-0.8); Eosinophils # 0.5 10*3/uL (0.0-0.87); Eosinophils % 3.7 % (0.00-10.9); Hematocrit 26.2 VOL% (42.0-52.0); Hemoglobin 8.7 GM/DL (14.0-18.0); Immature Granulocytes % 0.7 %; Immature Granulocytes Absolute 0.09 #; Lymphocytes # 2.9 10*3/uL (1.4-4.0); Lymphocytes % 21.9 % (21.2-54.2); Mean Corpuscular HGB Conc 33.2 GM/DL (32-36); Mean Corpuscular Hemoglobin 26 PG (27-34); Mean Corpuscular Volume 77.5 FL (87-102); Mean Platelet Volume 9.7 FL (9.6-12.0); Monocytes # 1.4 10*3/uL (0.11-0.8); Monocytes % 10.5 % (1.7-12.7); NRBC # 0.96 10*3/uL; Neutrophils # 8.2 10*3/uL (1.4-7.4); Platelet Count 364 T/CUMM (130-400); Red Blood Count 3.38 MC/CUMM (3.8-5.5); Red Cell Distribution Width 20.9 % (9.3-17.3); White Blood Count 13.1 T/CUMM (4-12)
[2017-01-27 05:36] LABS: Albumin 1.7 G/DL (3.4-5.0); Bilirubin,Total 0.4 MG/DL (0.2-1.0); Magnesium 1.7 MG/DL (1.8-2.4); Osmolality,Calculated 290.4 MOS/KG (273-304); Phosphorous 3.3 MG/DL (2.5-4.9); Total Protein 5.6 G/DL (6.4-8.3)
[2017-01-27] MEDS: PANTOPRAZOLE 40 MG TABLET PO SCH ×2 (07:06→18:34)
[2017-01-27] MEDS ORDERED: MAGNESIUM SULF RIDER 2 GM in PREMIX 1 EACH IV ONE (09:30)
--- NOTE | 2017-01-27 09:32 | Hospitalist Progress Note ---
Assessment and Plan (1) Decubitus ulcer of hip, left, unstageable Status: Acute Assessment and plan: Ulcerations noted bilaterally; we will culture and consult surgery to evaluate. 01/26-Surgery to follow and manage. Current Visit: Yes (2) Decubitus ulcer of hip, right, unstageable Status: Acute Assessment and plan: Ulcerations noted bilaterally; we will culture and consult surgery to evaluate. 01/26-surgery is following and managing. Current Visit: Yes (3) Leukocytosis Status: Acute Assessment and plan: WBCs were noted at 16,000. Chest x-ray at [facility] suggest right lower lobe pneumonia. We will start empiric antibiotics, inhaled bronchodilators, and intravenous corticosteroids. We will recheck chest x-ray in a.m. 01/26-Improvement in white blood cell count noted. White blood cell count noted at 13.5. We will continue empiric antibiotics as previously ordered. 01/27-WBCs noted at 13.1. We will continue supportive care and empiric antibiotic coverage as previously ordered. Current Visit: Yes (4) Acidosis Status: Resolved Assessment and plan: Repeat ABG reported pH at 7.181. We will continue bicarbonate drip as previously ordered. Current Visit: Yes (5) GIB (gastrointestinal bleeding) Status: Acute Assessment and plan: Stool was heme positive. We have consulted gastroenterology to evaluate and treat. We will start PPIs in the meantime and hold all anticoagulation agents. 01/26-Hemoglobin and hematocrit noted at 8.7 and 26.6. No further episodes of bleeding noted anticoagulation agents remain on hold. Agree with GI recommendation to start ferrous sulfate and Protonix. Current Visit: Yes Qualifiers: GI bleed type/associated pathology: unspecified peptic ulcer Qualified Code (s): K27.4 - Chronic or unspecified peptic ulcer, site unspecified, with hemorrhage (6) Anemia Status: Acute Assessment and plan: Hemoglobin and hematocrit noted at 5.6 and 17. Upon review of the patient's medical records, the patient has chronic anemia. In addition, the patient also takes Eliquis for anticoagulation purposes. We will type and screen and transfuse blood products. We will recheck hemoglobin and hematocrit in a.m. 01/26-hemoglobin and hematocrit stable at 8.7 at 26.6. No reports of any bleeding noted. We agree with GIs recommendation to start ferrous sulfate and Protonix. We appreciate the input and management of Dr. Chavez during the clinical encounter. 01/27-hemoglobin and hematocrit 8.7/26.2. No reports of bleeding noted. Continue ferrous sulfate and Protonix for GI recommendation. Current Visit: Yes Qualifiers: Chronic kidney disease stage: unspecified stage (7) Hypomagnesemia Status: Acute Assessment and plan: Magnesium noted at 1.7; we will correct deficit and recheck in a.m. 01/27-magnesium noted at 1.7; we will correct the deficit and recheck in a.m. Current Visit: Yes (8) INR (international normal ratio) abnormal Status: Acute Current Visit: Yes (9) Chronic pain Status: Acute Assessment and plan: Current pain medication regimen discussed with nursing staff. Staff reports patient requesting medications prior to scheduled time. Upon review of the patient's medical records the patient generally takes an extended release type agent at home however he is unaware of the name. He reports that he takes it every 12 hours this is presumably a extended-release agent. We will start OxyIR 20 mg every 12 hours, discontinue hydromorphone, and continue morphine 4 mg every 4 hours as needed for pain. We will reassess and monitor closely. Current Visit: Yes Hospitalist: Subjective Interval history: Patient seen and examined; chart reviewed. No significant overnight events reported per staff. Exam - Constitutional Vitals: Period Temp Pulse Resp BP Sys/Esquivel Pulse Ox Last 24 Hr 98.6 F-100.0 F 69-90 16-20 136-162/74-83 97-100 General appearance: normal weight, no acute distress - Head Head exam: Present: normal inspection, normocephalic, atraumatic - Eye Eye exam: Present: EOMI, conjunctival injection - ENT ENT exam: Present: normal exam, normal external ear exam, normal oropharynx - Neck Neck exam: Present: normal inspection. Absent: lymphadenopathy, meningismus, thyromegaly - Respiratory Respiratory exam: Present: clear to auscultation bilaterally. Absent: rales, rhonchi, stridor, wheezes - Cardiovascular Cardiovascular exam: Present: regular rate and rhythm. Absent: carotid bruit, diastolic murmur, gallop, JVD, rubs, systolic murmur - GI/Abdominal GI/Abdominal exam: Present: normal bowel sounds, soft - Extremities Exam Extremities exam: Present: other (Paraplegia) - Back Exam Back exam: Present: normal inspection - Neurological Exam Neurological exam: Present: alert, oriented X3, CN II-XII intact - Psychiatric Psychiatric exam: Present: normal affect, normal mood - Skin Skin exam: Present: normal color, warm, other (Multiple decubitus ulcerations noted to the bilateral heels and coccyx.) Results - Labs CBC & BMP: 01/27/17 04:43 01/27/17 04:43 Lab Results: I have reviewed the past 24 hour labs Quality Measures - VTE Contraindication to Pharmacological VTE Prophylaxis: Active Bleeding
[2017-01-27] MEDS: ZINC SULFATE 220 MG CAPSULE PO SCH (09:52)
[2017-01-27] MEDS: ASCORBIC ACID 500 MG TABLET PO SCH ×2 (09:52→20:03)
[2017-01-27] MEDS: VANCOMYCIN INJ 1,250 MG in SODIUM CHLORIDE 0.9% 250 ML IV SCH (09:52)
[2017-01-27] MEDS: SODIUM HYPOCHLORITE 0.25% IRRIG 473 ML BOTTLE TOP SCH (09:52)
[2017-01-27] MEDS: MULTIVITAMIN (BEROCCA) TABLET PO SCH (09:52)
[2017-01-27] MEDS: oxyCODONE ER 20 MG TABLET PO SCH ×2 (09:52→20:03)
[2017-01-27] MEDS: COLLAGENASE OINT 30 GM TUBE TOP SCH (09:53)
[2017-01-27] MEDS ORDERED: CALCIUM GLUCONATE 1,000 MG in SODIUM CHLORIDE 0.9% 100 ML IV ONE (11:00)
[2017-01-27] MEDS: LEVOFLOXACIN INJ 750 MG in PREMIX 1 EACH IV SCH (17:21)
[2017-01-28] MEDS: ALBUTEROL/IPRATROPIUM 3 ML NEB RESP TX SCH ×4 (00:50→20:08)
[2017-01-28] MEDS: PIPERACILLIN/TAZOBACTAM 3,375 MG in SODIUM CHLORIDE 0.9% 100 ML IV SCH ×3 (02:55→19:16)
[2017-01-28] MEDS: DEXTROSE 5% NACL 0.45% 1,000 ML IV SCH ×3 (02:56→19:17)
[2017-01-28] MEDS: MORPHINE 2 MG/1 ML SYRINGE IV PRN ×5 (03:42→20:42)
[2017-01-28 05:55] LABS: Basophils % 0.3 % (0.0-0.8); Eosinophils # 0.8 10*3/uL (0.0-0.87); Eosinophils % 6.1 % (0.00-10.9); Hematocrit 26.8 VOL% (42.0-52.0); Hemoglobin 8.9 GM/DL (14.0-18.0); Immature Granulocytes % 1.2 %; Immature Granulocytes Absolute 0.16 #; Lymphocytes # 2.9 10*3/uL (1.4-4.0); Lymphocytes % 21.4 % (21.2-54.2); Mean Corpuscular HGB Conc 33.2 GM/DL (32-36); Mean Corpuscular Hemoglobin 26 PG (27-34); Mean Corpuscular Volume 77.5 FL (87-102); Mean Platelet Volume 10.1 FL (9.6-12.0); Monocytes # 1.5 10*3/uL (0.11-0.8); Monocytes % 10.6 % (1.7-12.7); NRBC # 0.34 10*3/uL; Neutrophils # 8.3 10*3/uL (1.4-7.4); Neutrophils % 60.4 % (38.7-73.9); Platelet Count 383 T/CUMM (130-400); Red Blood Count 3.46 MC/CUMM (3.8-5.5); Red Cell Distribution Width 21.2 % (9.3-17.3); White Blood Count 13.7 T/CUMM (4-12)
[2017-01-28] MEDS: PANTOPRAZOLE 40 MG TABLET PO SCH ×2 (06:20→19:16)
[2017-01-28 06:24] LABS: Magnesium 1.9 MG/DL (1.8-2.4); Phosphorous 3.1 MG/DL (2.5-4.9)
[2017-01-28 06:26] LABS: Alanine Aminotransferase 12 U/L (16-61); Albumin 1.8 G/DL (3.4-5.0); Alkaline Phosphatase 369 U/L (45-117); Aspartate Amino Transferase 17 U/L (0-37); Bilirubin,Total < 0.39 MG/DL (0.2-1.0); Blood Urea Nitrogen 15 MG/DL (7-18); Calcium 6.5 MG/DL (8.5-10.1); Glucose 66 MG/DL (74-106); Osmolality,Calculated 286.7 MOS/KG (273-304); Potassium 3.5 MMOL/L (3.5-5.1); Sodium 145 MMOL/L (136-145); Total Protein 5.8 G/DL (6.4-8.3)
--- NOTE | 2017-01-28 08:03 | XRay Report ---
History is COPD respiratory distress Comparison 01/24/2017 The heart is mildly enlarged the right central line present There has been interval improvement of prior diffuse bilateral pulmonary opacities. Mild hazy infiltrates versus edema remain in the lung bases. Left base is underpenetrated. Impression: Mild improvement with mild residual bilateral infiltrates versus edema PROCEDURE INTERPRETED AT [facility] DEPARTMENT OF RADIOLOGY Final Report Signed by: Dr. Marlin Llanos
[2017-01-28] MEDS: MULTIVITAMIN (BEROCCA) TABLET PO SCH (09:16)
[2017-01-28] MEDS: ZINC SULFATE 220 MG CAPSULE PO SCH (09:16)
[2017-01-28] MEDS: oxyCODONE ER 20 MG TABLET PO SCH ×2 (09:16→20:42)
[2017-01-28] MEDS: ASCORBIC ACID 500 MG TABLET PO SCH ×2 (09:17→20:43)
[2017-01-28] MEDS: SODIUM HYPOCHLORITE 0.25% IRRIG 473 ML BOTTLE TOP SCH (11:43)
[2017-01-28] MEDS: COLLAGENASE OINT 30 GM TUBE TOP SCH (11:44)
--- NOTE | 2017-01-28 14:09 | Hospitalist Progress Note ---
Assessment and Plan (1) Decubitus ulcer of hip, left, unstageable Status: Acute Assessment and plan: This study infected decubitus ulcer disease on the right side. Microbiology defined from the [facility] system shows a extended spectrum of the drug resistance of gram-negative rods. I did review the antibiotics last Saturday and modified the antibiotics been given accordingly. Patient has been afebrile. However his white count remains elevated at this point and I do believe will benefit from not only good nutritional status wound management but also effective antibiosis to treat his infection. I believe he will need some IV antibiotics at least for the coming 2-3 weeks. Admitted suggestion on the note above. I believe he can be switched to Invanz a gram daily continue quinolone and form of ciprofloxacin 250 mg twice daily tailored to his creatinine clearance to use a probiotic 1 capsule twice a day during the course of antibiotics. This alternative choice of antibiotics should be started in the coming 48 hours at a time of discharge. [facility] over for antibiotics as an out-patient. Current Visit: Yes (2) Decubitus ulcer of hip, right, unstageable Status: Acute Assessment and plan: As above Current Visit: Yes (3) Leukocytosis Status: Acute Assessment and plan: As above Current Visit: Yes (4) GIB (gastrointestinal bleeding) Status: Acute Assessment and plan: Stable hematocrit Current Visit: Yes Qualifiers: GI bleed type/associated pathology: unspecified peptic ulcer Qualified Code (s): K27.4 - Chronic or unspecified peptic ulcer, site unspecified, with hemorrhage (5) Anemia Status: Acute Assessment and plan: This could be chronic loss of iron from these wounds as well as chronic inflammation. I will check ferritin and TIBC. Current Visit: Yes Qualifiers: Chronic kidney disease stage: unspecified stage Hospitalist: Subjective Interval history: Patient has been seen interviewed and examined and chart has been reviewed. Gentleman history of severe pressure ulcers including the sacrococcygeal region. He does have a colostomy for rectal diversion. He is microflora is still concerning in that he does have extended spectrum multidrug-resistant gram -negative rods. He is currently on levofloxacin P penicillin tazobactam and vancomycin. This empiric treatment should continue at least for the next 7-10 days. I am informed that he has been considered for outpatient state of antibiotics and specialty clinic where he has been going for wound care willing to take him in for both wound management and antibiotics. We may need to de- escalate his antibiotics as we approximate the date of discharge. This should be within the coming 48 hours. So far there has been no objective demonstration of staphylococcal organism or enterococci. But these organisms are strongly suspected given the low car of the wounds on the nature of the wounds. He is also has had gram-negative rods being the isolates. Will therefore approximately antibiotic that use of twice a day oral ciprofloxacin, a probiotic and Invanz 1 g every 24 hours. He also has isolated a yeast in the urine in the last day I will put him on fluconazole 100 mg daily for 7 days. Exam - Constitutional Vitals: Period Temp Pulse Resp BP Sys/Esquivel Pulse Ox Last 24 Hr 97.7 F-99.2 F 61-83 16-20 135-148/76-87 96-99 General appearance: no acute distress - Eye Eye exam: Present: EOMI Pupils: Present: DOUGLAS - Respiratory Respiratory exam: Present: clear to auscultation bilaterally - Cardiovascular Cardiovascular exam: Present: regular rate and rhythm - GI/Abdominal GI/Abdominal exam: Present: normal bowel sounds, soft, other (Colostomy in place ) - Extremities Exam Extremities exam: Present: other (Paraplegic) - Neurological Exam Neurological exam: Present: alert, oriented X3, CN II-XII intact - Psychiatric Psychiatric exam: Present: normal affect, normal mood - Skin Skin exam: Present: other (Extensive sacrococcygeal wounds that is extending to the gluteal spaces and intergluteal spaces and perirectal perianal areas. Is also excoriation of the scrotal skin.) Results - Labs CBC & BMP: 01/28/17 05:00 01/28/17 05:00 Lab Results: I have reviewed the past 24 hour labs (Note report of microbiologist from [facility] system) Quality Measures - VTE Contraindication to Pharmacological VTE Prophylaxis: Active Bleeding
[2017-01-28] MEDS: VANCOMYCIN INJ 1,250 MG in SODIUM CHLORIDE 0.9% 250 ML IV SCH (22:42)
[2017-01-29] MEDS: ALBUTEROL/IPRATROPIUM 3 ML NEB RESP TX SCH ×4 (01:13→19:18)
[2017-01-29] MEDS: MORPHINE 2 MG/1 ML SYRINGE IV PRN ×5 (01:17→18:34)
[2017-01-29] MEDS: PIPERACILLIN/TAZOBACTAM 3,375 MG in SODIUM CHLORIDE 0.9% 100 ML IV SCH ×3 (01:17→17:57)
[2017-01-29] MEDS: DEXTROSE 5% NACL 0.45% 1,000 ML IV SCH ×3 (01:29→19:06)
[2017-01-29] MEDS: PANTOPRAZOLE 40 MG TABLET PO SCH ×2 (06:13→20:46)
[2017-01-29] MEDS: ZINC SULFATE 220 MG CAPSULE PO SCH (09:46)
[2017-01-29] MEDS: oxyCODONE ER 20 MG TABLET PO SCH ×2 (09:46→20:46)
[2017-01-29] MEDS: ASCORBIC ACID 500 MG TABLET PO SCH ×2 (09:46→20:46)
[2017-01-29] MEDS: MULTIVITAMIN (BEROCCA) TABLET PO SCH (09:46)
[2017-01-29] MEDS: SODIUM HYPOCHLORITE 0.25% IRRIG 473 ML BOTTLE TOP SCH (09:47)
[2017-01-29] MEDS: COLLAGENASE OINT 30 GM TUBE TOP SCH (09:47)
[2017-01-29] MEDS ORDERED: FLUCONAZOLE INJ 100 MG in IV BAG 1 EACH IV SCH (11:30)
--- NOTE | 2017-01-29 13:17 | Hospitalist Progress Note ---
"Assessment and Plan (1) Decubitus ulcer, stage 3 with infection Status: Acute Assessment and plan: contiune iv antbx iv zosyn and iv vanc for 2 more week, pt is waiting for transfer to [facility] for completion of iv antbx Current Visit: Yes (2) GIB (gastrointestinal bleeding) Status: Acute Assessment and plan: resolved Current Visit: Yes Qualifiers: GI bleed type/associated pathology: unspecified peptic ulcer Qualified Code (s): K27.4 - Chronic or unspecified peptic ulcer, site unspecified, with hemorrhage (3) History of DVT (deep vein thrombosis) Status: Chronic Assessment and plan: tatus: Chronic Assessment and plan: History of prior left lower extremity DVT on anticoagulation with Xarelto. Xarelto is being held due to gastrointestinal bleeding and acute blood loss anemia Current Visit: Yes (3) Acidosis Status: Resolved Current Visit: Yes (4) GIB (gastrointestinal bleeding) Status: Acute Assessment and plan: GI consult reviewed. Case discussed with Dr. Chavez. Endoscopy performed. Upper and lower without evidence of acute bleeding. Anticoagulation held. No further blood loss at this time. Current Visit: Yes Qualifiers: GI bleed type/associated pathology: unspecified peptic ulcer Qualified Code (s): K27.4 - Chronic or unspecified peptic ulcer, site unspecified, with hemorrhage (5) History of peptic ulcer disease Status: Inactive Current Visit: Yes (6) Acute posthemorrhagic anemia, watch H|H Status: Acute Current Visit: Yes Current Visit: Yes (4) Mackenzie albicans infection Status: Acute Assessment and plan: add diflucn 100 mg iv qd for 7 days Current Visit: Yes Hospitalist: Subjective Interval history: clinically stable waiting for transfer to [facility] for prolong iv antbx treatment Exam - Constitutional Vitals: Period Temp Pulse Resp BP Sys/Esquivel Pulse Ox Last 24 Hr 98.2 F-99.5 F 66-92 16-20 127-142/67-80 96-100 heent, pearle neck, supple. chest clear. cvs, s1 s2. abd, soft, bs+ exam of lower extremity, stage 3 decubittii ulcers on both hips and lower back look clean Results - Labs CBC & BMP: 01/28/17 05:00 01/28/17 05:00 Quality Measures - VTE Contraindication to Pharmacological VTE Prophylaxis: Active Bleeding"
--- NOTE | 2017-01-29 15:28 | Discharge Summary ---
Hospital Course - Hospital Course Hospital Course: 36-year-old male that presented to [facility] as a transfer from the [facility] in [facility] for further evaluation of pneumonia and acidosis. The patient has a very long and complex medical history significant for: Paraplegia, iron deficiency anemia, gastroesophageal reflux disease, mixed anxiety depressive disorder, chronic urinary tract infections, chronic pain syndrome, tracheostomy placement, nicotine addiction, hypocalcemia, and chronic constipation. Patient has a surgical history significant for multiple surgical debridements for various decubitus ulcerations, colectomy with colostomy placement, and spinal instrumentation with posterior rods and segmental wiring placement. The patient presented to the ED at [facility] in [facility] this morning via EMS for the evaluation of shortness of breath. Per EMS report, the patient had a productive cough with yellow sputum and shortness of breath which started on last night. The patient is homebound and is cared for by his family. They reported to the EMS staff that the patient has had multiple episodes similar in nature in the past. The patient was transported to the [facility] in [facility] for further evaluation. The patient was assessed immediately at the time of arrival. Labs were obtained ; complete blood count reported white blood cell count at 16.2, hemoglobin 5.6, hematocrit 17.7, and platelet count at 513. Comprehensive metabolic panel reported sodium at 150, potassium 5.8, chloride 122, carbon dioxide 18, calcium 6.2, BUN 34, creatinine 2.70, glucose 107, alkaline phosphatase 521, magnesium 1.4, and lactic acid at 0.5. Urinalysis was performed which was essentially negative however was a moderate amount of blood noted. Arterial blood gas was obtained which reported a pH of 7.14, PCO2 27, HC03 at 9, and PO2 of 42. Stools for occult blood were heme positive. Coagulation panel reported PTT at 79.9, PT 23.7, INR 2.8. Chest x-ray was significant for right lower lobe pneumonia. Empiric antibiotics were initiated. One amp of sodium bicarb and D5W with 3 A of bicarbonate infusion was initiated at 125 mL an hour. In addition, inhaled bronchodilators and intravenous corticosteroids were initiated. The hospitalist services was then contacted by Dr. Lillie Dent regarding transfer to [facility] for a higher level of care. After brief discussion with both Dr. Dent and Dr. Owens, the patient was subsequently transferred to [facility] for a higher level of care. The patient will be admitted to the critical care unit for continuation of care. , pt was treated with IV antbx for pneumonia, also started on multiple iv antbx for infecte=cted hip and scal decubitti, on iv zosyn and iv vanc also on iv diflucan i is felt that pt need atleast 2 week of additional iv antbx , his pneumonia is resolved, [facility] , pt History of prior left lower extremity DVT on anticoagulation with Xarelto. Xarelto is being held by GI due to gastrointestinal bleeding and acute blood loss anemia, will recommend to reconsult GI in 1 week about resumption of xaralto Diagnosis - Discharge Diagnosis (1) Decubitus ulcer, stage 3 with infection Status: Acute (2) GIB (gastrointestinal bleeding) Status: Acute (3) History of DVT (deep vein thrombosis) Status: Chronic (4) Mackenzie albicans infection Status: Acute (5) Decubitus ulcer of hip, left, unstageable Status: Acute (6) Decubitus ulcer of hip, right, unstageable Status: Acute Discharge Plan - Discharge Data Disposition: Disch/Xfer-[facility] Term Hos Condition at Discharge: Stable Discharge Diet: low fat, low cholesterol - Discharge Medications New Albuterol Neb [Proventil Neb] 2.5 mg RESP TX RT Q6H PRN PRN Reason: Shortness Of Breath/Wheezing Albuterol/Ipratropium Neb [Duoneb] 3 ml RESP TX RT Q6H Collagenase Oint [Santyl Oint] 1 applic TOP DAILY applic Fluconazole Inj [Diflucan Inj] 100 mg IV Q24H Morphine Inj 2 mg IV Q4H PRN syringe PRN Reason: Pain Severe (8-10) Ondansetron Inj [Zofran Inj] 4 mg IV Q4H PRN vial PRN Reason: Nausea/Vomiting oxyCODONE ER [OxyCONTIN] 20 mg PO Q12HR tablet Pantoprazole Tab [Protonix Tab] 40 mg PO BID@0700,1900 tablet Skin Healing Oint (Aquaphor) [Aquaphor] 1 applic TOP PRN PRN applic PRN Reason: Dry Skin Sodium Hypochlorite 0.25% Irr [Dakins 1/2 Strength 0.25% Soln] 1 applic TOP DAILY applic Vancomycin Inj 1,250 mg IV Q36H vial Zinc Sulfate 220 mg PO DAILY capsule Ascorbic Acid Tab [Vitamin C Tab] 500 mg PO BID tablet Multivitamin (Berocca) [Berocca] 1 tablet PO DAILY tablet Piperacillin/Tazobactam [Zosyn] 3,375 mg IV Q8H vial - Follow Up or Referral - Forms/Instructions Exam - Constitutional Vitals: Period Temp Pulse Resp BP Sys/Esquivel Pulse Ox Last 24 Hr 98.2 F-99.5 F 66-92 16-20 127-164/67-88 96-100 heent, pearle neck, supple. chest clear. cvs, s1 s2. 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, alert orientedx3 Discharge Results Procedures and tests throughout hospitalization: Pending Orders 01/26/17 12:01 Blood Culture Stat 01/28/17 05:00 Transferrin Stat 01/30/17 04:00 BMP [Basic Metabolic Panel] IN AM Comp Blood Count Auto Diff IN AM Labs on day of discharge: Labs from last 24 hours 01/29/17 10:00 Vancomycin Trough 31.8 H Preliminary micro results at discharge 01/26/17 12:01 Blood Culture - Preliminary Blood No growth at 3 days 01/26/17 12:01 Blood Culture - Preliminary Blood No growth at 3 days DS: Provider Date of admission: 01/25/17 20:40 Primary care physician: Saeed Oneal MD Attending physician on admission: Britni Owens MD Consults: 01/23/17 14:00 Consult to Anesthesiology [CONS] Routine Consulting Provider: Reason for Anesthesiology: Pre-op Clearance Consult to Physician [CONS] Routine Comment: Consulting Provider: Ernesto Mcpherson Consult to Specialist Group: Surgery When should Consulting Provider be notified: Now Person Notified: Grace Date Notified: 01/23/17 Time Notified: 14:04 Consult Notification Comment: Sacral wound eval 01/23/17 14:45 Consult to Pharmacy [CONS] Routine Reason for Pharmacy Consult: Dose/Manage Vancomycin 01/23/17 14:47 Consult to Physician [CONS] Routine Comment: sacral wound Consulting Provider: Ernesto Mcpherson When should Consulting Provider be notified: Now Person Notified: raheem calzada Date Notified: 01/23/17 Time Notified: 13:35 01/26/17 13:41 Consult to Case Mgmt/Social Srvs [CONS] Routine Reason for Case Mgmt/Social Srvs: Other Consult Comment: lives at home large wounds Discharging clinician: Lance Harman MD
[2017-01-29 21:58] VITALS: BP 136/73
--- NOTE | 2017-02-01 13:21 | Physician Query Form ---
CLICK EDIT DOCUMENT TO SELECT QUERY ANSWER --> OK --> SIGN Stefanie Tang RN Clinical Outreach Specialist W) [phone] (f) [phone] [email or web address] PROVIDERS: Make your selection(s) from the choices in EACH section by typing an "x" and enter comments in the comment section. Please use your independent medical judgment in providing your response. This request does not imply that any particular answer is desired or expected. CLINICAL INDICATORS: (Providers should not edit this section) Based on documentation of "acute Mackenzie albicans infection". Urine culture showed Mackenzie tropicalis. Pt. treated with IV antibiotics and IV Diflucan. Based on the above, could you clarify the appropriate diagnosis, if significant , that supports the above abnormalities and additional evaluation, monitoring, and/or treatment rendered: (x) Pt. treated for UTI ( ) Pt. not treated for UTI ( ) Other, please specify: ( ) Clinically unable to determine COMMENTS: PLEASE ALSO DOCUMENT RESPONSE IN PROGRESS NOTES AND/OR DISCHARGE SUMMARY Use of terms such as suspected, likely, or probable (associated with a specific diagnosis that is being evaluated, monitored, or treated as if it exists) are acceptable and can be restated in the discharge summary if not ruled out. [facility]
== END 2017-01-29 22:09 | DRG 193 ==
LOC: N.CC 11:52 → SUATTDRO 01-25 20:40
PROVIDERS: ADMIT Family Medicine; ATTEND Internal Medicine